=== PATIENT | male | born 1970 | race Caucasian/White ===

== ENCOUNTER 2016-11-22 05:44 | Inpatient (IN) | payer OTHER ==
[~2016-11-22] VITALS: Ht 172.7 cm; Wt 81.8 kg
[2016-11-22] VITALS (30 sets, daily range): BP systolic 108–145; BP diastolic 59–84; PULSE 59–88; RESP 12–23; Ht 172.7 cm; Wt 81.8 kg
[2016-11-22] MEDS ORDERED: CEFAZOLIN 2 GM/50 ML (PMX) 50 ML IVPB ONE (06:10)
[2016-11-22] MEDS ORDERED: LACTATED RINGER'S 1,000 ML IV* SCH (06:11)
[2016-11-22] MEDS ORDERED: SUCCINYLCHOLINE CHLORIDE 100 MG/5 ML SYG IV ONE (06:45)
[2016-11-22] MEDS ORDERED: ONDANSETRON 4 MG INJ ONE (06:45)
[2016-11-22] MEDS ORDERED: PROPOFOL 20 ML ONE (06:45)
[2016-11-22] MEDS ORDERED: ROCURONIUM 50 MG INJ ONE (06:45)
[2016-11-22] MEDS ORDERED: FENTAnyl 50 MCG/ML VIAL ONE (06:45)
[2016-11-22] MEDS ORDERED: POLYMYXIN/BACITRACIN 1L IRRIG ONE (06:46)
[2016-11-22] MEDS ORDERED: LIDOCAINE 2% JELLY 5 ML ONE (06:47)
[2016-11-22] MEDS ORDERED: GELATIN SIZE 100 SPONGE ONE (06:48)
[2016-11-22] MEDS ORDERED: BUPIVACAINE 0.25%/EPI (SDV) 30 ML INJ ONE (06:48)
[2016-11-22] MEDS ORDERED: THROMBIN 5000 UNIT VIAL ONE (06:49)
[2016-11-22] MEDS ORDERED: CEFAZOLIN 1 GM INJ ONE (06:49)
--- NOTE | 2016-11-22 07:05 | HPN ---
Date/Time of Note Date/Time of Note DATE: 11/22/16 TIME: 07:05 Interval H&P Admission Note Pt. seen H&P reviewed: No system changes ANDREA DO MD Nov 22, 2016 07:05
[2016-11-22] MEDS ORDERED: DEXAMETHASONE 4 MG/ML 1 ML INJ ONE (07:40)
[2016-11-22] MEDS ORDERED: POLYMYXIN/BACITRACIN 1L IRRIG IRR ONE (08:06)
[2016-11-22] MEDS ORDERED: HYDROmorphONE (0.2 MG/ML) 10ML SYG IV PRN ×2 (08:30)
[2016-11-22] MEDS ORDERED: ONDANSETRON 4 MG INJ IV PRN ×2 (08:30→10:30)
[2016-11-22] MEDS ORDERED: LABETALOL HCL 20MG INJ IV PRN (08:30)
[2016-11-22] MEDS ORDERED: MEPERIDINE 25 MG INJ IV PRN (08:30)
[2016-11-22] MEDS ORDERED: hydrALAzine 20 MG INJ IV PRN (08:30)
[2016-11-22] MEDS ORDERED: FENTAnyl 50 MCG/ML VIAL IV PRN ×2 (08:30)
[2016-11-22] MEDS ORDERED: BETAMET NA PHOS/AC(6 MG/ML) 5ML INJ ONE (08:31)
[2016-11-22] MEDS ORDERED: HEMOSTATIC MATRIX SYG ZFS ONE (08:48)
[2016-11-22] MEDS ORDERED: THROMBIN 5000 UNIT VIAL TOP ONE ×2 (08:48→09:06)
[2016-11-22] MEDS ORDERED: GELATIN SIZE 100 SPONGE TOP ONE (09:06)
[2016-11-22] MEDS ORDERED: NALOXONE (0.4 MG/ML) INJ IV PRN (10:30)
[2016-11-22] MEDS ORDERED: HYDROCODONE/APAP (5/325) TAB PO PRN (10:30)
[2016-11-22] MEDS ORDERED: PROCHLORPERAZINE 10 MG TAB PO PRN (10:30)
[2016-11-22] MEDS ORDERED: NACL 0.9% 3 ML SYG IV SCH (10:30)
--- NOTE | 2016-11-22 10:30 | OPR ---
Date/Time of Note Date/Time of Note DATE: 11/22/16 TIME: 10:24 Operative Report Free Text/Dictation DATE OF OPERATION: 11/22/2016 PREOPERATIVE DIAGNOSES: Right L4-L5 disk herniation with radiculopathy POSTOPERATIVE DIAGNOSES: Right L4-L5 disk herniation with radiculopathy OPERATION PERFORMED: Right L4-L5 microdiscectomy SURGEON: Andrea Do MD ROTATIONAL MOULDING OPERATOR: Lauri Edouard MD ANESTHESIA: General endotracheal ESTIMATED BLOOD LOSS: 150 mL SURGICAL INDICATION: The patient is a 46 year-old male who presents with a history of right lower extremity pain and weakness. He was found to have a disc herniation which correlated well with his symptoms. The patient had failed conservative treatment. Risks, benefits, and alternatives to microdiscectomy were explained to the patient and they wished to proceed. Risks explained included but were not exclusive of bleeding, infection, cauda equina syndrome, nerve injury, dural tear, iatrogenic instability, recurrent disc herniation, fracture, vascular injury, bowel injury, stroke, heart attack and pulmonary embolism. DESCRIPTION OF TECHNIQUE: The patient was identified in the preoperative area and taken to the operating room. Rapid induction of general endotracheal anesthesia was performed. The patient was given 2 g of cefazolin for prophylaxis. The patient was then placed in the prone position on the Willy frame on a Benjamin flat top table with all prominences well padded. The back was prepped and draped in the usual sterile manner. Using a spinal needle and intraoperative fluoroscopy, the appropriate level was clearly identified (L4-L5) . The skin was injected using 0.25% Marcaine with epinephrine. Longitudinal midline incision was then created using a 10 blade. Further dissection through soft tissue was performed using electrocautery down to the spinous processes. The dissection was taken down the right side of the lamina and over the facet joint capsule. A self-retaining retractor was applied. Again, intraoperative fluoroscopy confirmed the appropriate level. The microscope was brought into use for microdissection. A portion of the caudal aspect of the cephalad lamina was resected using a high-speed bur. A series of Kerrison rongeurs were then used to resect the ligamentum flavum. The dura and traversing nerve root were both directly visualized. These were retracted gently in a medial direction. There was a proximal extruded disc fragment noted posterior to the L4 vertebral body with associated phlegmon. The pseudo anulus was incised using an 11 blade. Several loose fragments of disk were removed. These were removed back to a stable portion of the disk. The disk space was further pressurized using a using normal saline through a syringe to ensure that no loose fragments remained behind. Palpation with a ball-tip probe did not reveal any further stenosis. The traversing L5 nerve root was noted to be significantly decompressed. Meticulous attention was paid towards hemostasis using FloSeal as well as Gelfoam and thrombin. Care was taken to remove all FloSeal and Gelfoam prior to wound closure. The fascia was then closed using 1 Vicryl in an interrupted fashion. Subcutaneous tissue was closed using 2-0 Vicryl in an interrupted fashion. The skin was closed using a running 4-0 Monocryl stitch. The wound was dressed using Dermabond and a 4x4 sterile gauze. The patient was returned to the supine position. He was extubated immediately postoperatively and taken to the recovery room in stable condition. COMPLICATIONS: None. Anesthesia: general Estimated Blood Loss: 100 - 150 ml's Complications: None Pt Condition Post Procedure: stable Disposition: PACU ANDREA DO MD Nov 22, 2016 10:30
--- NOTE | 2016-11-22 10:33 | PDOCDIS ---
Discharge Instructions CONDITION Patient Condition: Good HOME CARE INSTRUCTIONS: Diet Instructions: Regular ACTIVITY: Activity Restrictions: Avoid heavy lifting Bathing Restrictions: ShowerActivity Restrictions Comment: keep wound dry, cover in plastic when showering FOLLOW UP/APPOINTMENTS Appointments Follow-up with Dr. Do in 2 weeks ANDREA DO MD Nov 22, 2016 10:33
[2016-11-22] MEDS: HYDROmorphONE (0.2 MG/ML) 10ML SYG IV PRN ×4 (11:04→11:57)
--- NOTE | 2016-11-22 12:51 | RADRPT ---
PROCEDURE: Intraoperative imaging of the lumbar spine with fluoroscopy. CLINICAL INDICATION: Back pain. Intraoperative. TECHNIQUE: 5 images of the lumbar spine were obtained in the operating room with an image intensif ier. No radiologist was in attendance. 6.6 seconds of fluoroscopy time was used. COMPARISON: No prior study is available for comparison. FINDINGS: For the purposes of this report, the last apparent true disc level is considered to be L5-S1. Based on this, the posterior surgical instrument is present overlying the L4-5 level. IMPRESSION: 1. Intraoperative imaging of the lumbar spine. RPTAT: QQ .Ronny Barrow MD, MD Date Time Electronically viewed and signed by .Ronny Barrow MD, on 11/22/2016 12:50 .R/
[2016-11-22] MEDS: HYDROCODONE/APAP (5/325) TAB PO PRN ×2 (14:40→19:35)
[2016-11-23] MEDS: HYDROCODONE/APAP (5/325) TAB PO PRN ×3 (00:10→09:42)
[2016-11-23] MEDS: DIAZEPAM 5 MG TAB PO PRN ×2 (01:07→01:42)
[2016-11-23 08:07] VITALS: BP 119/75; RESP 18
== END 2016-11-23 10:05 | disposition home or self-care (01) | DRG 520 ==
LOC: SDS 05:44 → MS1 10:32 → SDS 10:32 → MS1 14:25
PROVIDERS: ADMIT Orthopaedic Surgery; ATTEND Orthopaedic Surgery
PROC: 0SB20ZZ Excision of Lumbar Vertebral Disc, Open Approach (ICD-10-PCS; principal; 2016-11-22 07:30)
DX: M51.16 Intervertebral disc disorders with radiculopathy, lumbar region (principal); Z98.890 Other specified postprocedural states
CPT/HCPCS: 72100; 97162; J0330; J0690; J0702; J1100; J1170; J2175; J2405; J3010